=== PATIENT | female | born 1990 | race Two or more races ===

== ENCOUNTER 2017-11-27 23:05 | Emergency (ER) | payer BC ==
[~2017-11-27] VITALS: Ht 167.6 cm; Wt 95.3 kg
--- NOTE | 2017-11-27 23:54 | NUR ---
DR. CARIAS AT BEDSIDE FOR MSE.
[2017-11-28 00:11] VITALS: BP 101/62
--- NOTE | 2017-11-28 00:11 | NUR ---
Patient discharged to home in stable conditon. Written and verbal after care instructions given. Patient verbalizes understanding of instructions. PATIENT LEFT WITH STABLE GAIT.
[2017-11-28] MEDS ORDERED: TDAP DIPH,PERTUSS,TET VAC/PF 0.5 ML DISP.SYRIN IM ONE ×2 (00:13)
== END 2017-11-28 00:12 | disposition home or self-care (01) ==
LOC: ER 23:05
DX: S91.332A Puncture wound without foreign body, left foot, initial encounter (principal); W22.8XXA Striking against or struck by other objects, initial encounter; Y93.89 Activity, other specified; Y92.89 Other specified places as the place of occurrence of the external cause; Y99.8 Other external cause status
CPT/HCPCS: 90471; 90715; 99283; A4663